=== PATIENT | female | born 1965 | race Caucasian/White ===

== ENCOUNTER 2019-09-27 12:21 | Day surgery (SDC) | payer MEDICAID ==
[~2019-09-27] VITALS: Ht 170.2 cm; Wt 54.4 kg
[2019-09-27] VITALS (10 sets, daily range): BP systolic 112–142; BP diastolic 51–86
--- NOTE | 2019-09-27 12:30 | NUR ---
Pt arrived to unit with , ambulating independently & without difficulty, in no acute distress. Pt oriented to room, including call light use.
[2019-09-27] MEDS ORDERED: diphenhydrAMINE 25mg capsule PO PRN (12:45)
[2019-09-27] MEDS ORDERED: NITR0.4T48 SL (12:48)
[2019-09-27] MEDS ORDERED: ESCI10TA61 PO (12:48)
[2019-09-27] MEDS ORDERED: IBUP-1985 PO (12:48)
[2019-09-27] MEDS ORDERED: PRAV40TA3 PO (12:48)
[2019-09-27] MEDS ORDERED: DIAZ5TAB5 PO (12:48)
[2019-09-27] MEDS ORDERED: DIPH1TAB29 PO (12:48)
[2019-09-27] MEDS ORDERED: ASPI-1265 PO (12:48)
[2019-09-27] MEDS ORDERED: METO-395 PO (12:48)
[2019-09-27] MEDS: normal saline 1,000 ML IV SCH ×2 (13:23→17:08)
[2019-09-27 13:27] LABS: BASOPHILS # (AUTO) 0.1 X10'3 (0-0.2); BASOPHILS % (AUTO) 0.7 % (0-1); EOSINOPHILS # (AUTO) 0.2 X10'3 (0-0.9); EOSINOPHILS % (AUTO) 2.1 % (0-6); HEMATOCRIT 42.4 % (35.0-45.0); HEMOGLOBIN 14.5 g/dl (12.0-16.0); LYMPHOCYTES # (AUTO) 1.7 X10'3 (1.1-4.8); LYMPHOCYTES % (AUTO) 20.7 % (21-51); MEAN CORPUSCULAR HEMOGLOBIN 30.4 PG (27.0-31.0); MEAN CORPUSCULAR HGB CONC 34.2 g/dL (33.0-36.5); MEAN CORPUSCULAR VOLUME 88.7 FL (78-98); MEAN PLATELET VOLUME 7.1 FL (7.4-10.4); MONOCYTES # (AUTO) 0.6 X10'3 (0-0.9); MONOCYTES % (AUTO) 7.8 % (2-12); NEUTROPHILS # (AUTO) 5.7 X10'3 (1.8-7.7); NEUTROPHILS % (AUTO) 68.7 % (42-75); PLATELET COUNT 325 X10'3 (140-440); RED BLOOD COUNT 4.79 X10'6 (4.20-5.60); RED CELL DISTRIBUTION WIDTH 13.9 % (11.5-14.5); WHITE BLOOD COUNT 8.3 X10'3 (4.5-11.0)
[2019-09-27 13:38] LABS: ALBUMIN 3.9 G/DL (3.4-5.0); ANION GAP 8 (8-16); BLOOD UREA NITROGEN 16 MG/DL (7-18); CALCIUM 8.9 MG/DL (8.5-10.1); CHLORIDE 110 MMOL/L (99-107); CREATININE 0.94 MG/DL (0.40-0.90); GLUCOSE 81 MG/DL (70-104); MAGNESIUM 2.3 MG/DL (1.5-2.4); POTASSIUM 4.3 MMOL/L (3.5-5.1); SODIUM 144 MMOL/L (135-145); TOTAL CARBON DIOXIDE 26.4 MMOL/L (24-32); eGFR 63 ML/MIN
--- NOTE | 2019-09-27 13:45 | NUR ---
Pt transported to [facility] via [facility].
[2019-09-27] MEDS ORDERED: midazolam 2 mg/2 ml injection ONE ×2 (13:49→14:17)
[2019-09-27] MEDS ORDERED: fentaNYL/PF 50MCG/1 ML 2ML syringe ONE (13:49)
[2019-09-27] MEDS ORDERED: LIDOcaine 1% (10mg/ml)w/preservative injection 20ml MDV ONE (13:49)
[2019-09-27] MEDS ORDERED: iohexol 350 MG/ML 50ML vial IV ONE (13:49)
[2019-09-27] MEDS ORDERED: iohexol 350MG/ML 100ml bottle IV ONE (13:49)
--- NOTE | 2019-09-27 14:55 | NUR ---
Pt returned to room via gurney from clinical laboratory assistant. Groin site stable, no bleeding or hematoma present, dressing CDI. Will continue to closely monitor.
[2019-09-27] MEDS ORDERED: ondansetron/PF 4mg/2ml inj IV PRN (15:10)
[2019-09-27] MEDS ORDERED: proCHLORperazine 10 MG/2 ml inj IV PRN (15:15)
[2019-09-27] MEDS ORDERED: acetaminophen 325mg tablet PO PRN (15:15)
--- NOTE | 2019-09-27 19:00 | NUR ---
Pt up & OOB, walked 100ft without difficulty, no SOB, dizziness or chest pain. Groin site stable without hematoma or bleeding.
== END 2019-09-27 19:30 | disposition home or self-care (01) ==
LOC: SSTAY O 12:21
PROVIDERS: ATTEND Internal Medicine Cardiovascular Disease
DX: R94.39 Abnormal result of other cardiovascular function study (principal); F17.210 Nicotine dependence, cigarettes, uncomplicated; Z85.038 Personal history of other malignant neoplasm of large intestine; Z79.01 Long term (current) use of anticoagulants; Z79.899 Other long term (current) drug therapy
CPT/HCPCS: 36415; 80048; 83735; 85025; 85610; 93005; 93458; 99152; 99153; C1760; C1769; C1894; J1644; J2001; J2250; J3010; J7030; Q9967; A4620; A6258